=== PATIENT | female | born 1970 | race Two or more races ===

== ENCOUNTER 2023-12-26 13:12 | Outpatient (OUT) | payer BC, SELFPAY ==
--- NOTE | 2023-12-26 13:15 | MM_ITS ---
Patient Name: MK VICTOR MR#: [id number] : 1970 Exam Date: 12/26/2023 Ordering Doctor: DR MADAI BAHENA M.D. RADIOLOGY REPORT PROCEDURE: MM TOMOSYNTHESIS SCREENING BI COMPARISON: MG MAMM SCREEN 3D SIRENA CAD, 12/23/2022. MG MAMM SCREEN 3D SIRENA CAD, 11/26/2021. MG MAMM SCREEN SIRENA W CAD, 11/13/2019. MG MAMM SIRENA SCRN W CAD DIG, 01/01/2014. INDICATIONS: Screening Calculator Name NCI Breast Cancer Risk Assessment Tool 5 Year Breast Cancer Risk 1.50% Lifetime Breast Cancer Risk 8.90% Personal Breast Cancer No Personal Ovarian Cancer No Treatments None Family Cancers None LOCATION: [facility] BREAST COMPOSITION: Heterogeneously dense,which may obscure small masses. FINDINGS: DIAGNOSTIC CATEGORY 2--BENIGN FINDING: RIGHT BREAST: No significant suspicious finding. Scattered benign-appearing lymph nodes are present. No significant change has occurred. LEFT BREAST: No significant suspicious finding. Scattered benign-appearing lymph nodes are present. No significant change has occurred. RECOMMENDATIONS: ROUTINE MAMMOGRAM AND CLINICAL EVALUATION IN 12 MONTHS. PLEASE NOTE: A NORMAL MAMMOGRAM DOES NOT EXCLUDE THE POSSIBILITY OF BREAST CANCER. A CLINICALLY SUSPICIOUS PALPABLE LUMP SHOULD BE BIOPSIED. Dictated by: Lorenzo Tomas M.D. on 12/28/2023 at 15:54 Approved by: Lorenzo Tomas M.D. on 12/28/2023 at 15:56
== END 2023-12-26 13:13 | disposition home or self-care (01) ==
LOC: MAMMO 13:12
PROVIDERS: PCP Obstetrics & Gynecology; Visit Provider Obstetrics & Gynecology
DX: Z12.31 Encounter for screening mammogram for malignant neoplasm of breast (principal)
CPT/HCPCS: 77063; 77067

== ENCOUNTER 2025-01-01 14:47 | Outpatient (OUT) | payer BC, SELFPAY ==
--- NOTE | 2025-01-01 14:50 | MM_ITS ---
Patient Name: MK VICTOR MR#: [id number] : 1970 Exam Date: 01/01/2025 Ordering Doctor: DR MADAI BAHENA M.D. RADIOLOGY REPORT PROCEDURE: MM TOMOSYNTHESIS SCREENING BI COMPARISON: MM TOMOSYNTHESIS SCREENING BI, 12/26/2023. MG MAMM SCREEN 3D SIRENA CAD, 12/23/2022. MG MAMM SCREEN 3D SIRENA CAD, 11/26/2021. MG MAMM SIRENA SCRN W CAD DIG, 01/01/2014. INDICATIONS: Screening Calculator Name NCI Breast Cancer Risk Assessment Tool 5 Year Breast Cancer Risk 1.60% Lifetime Breast Cancer Risk 8.70% Personal Breast Cancer No Personal Ovarian Cancer No Treatments None Family Cancers None LOCATION: [facility] BREAST COMPOSITION: The breasts are heterogeneously dense,which may obscure small masses. FINDINGS: RIGHT BREAST: No significant suspicious finding. LEFT BREAST: No significant suspicious finding. BENIGN-APPEARING CALCIFICATIONS ARE PRESENT. SIMILAR FOCAL ASYMMETRIES ARE NOTED LATERALLY. DIAGNOSTIC CATEGORY 2--BENIGN FINDING. NO CHANGE FROM COMPARISON. RECOMMENDATIONS: ROUTINE MAMMOGRAM AND CLINICAL EVALUATION IN 12 MONTHS. PLEASE NOTE: A NORMAL MAMMOGRAM DOES NOT EXCLUDE THE POSSIBILITY OF BREAST CANCER. A CLINICALLY SUSPICIOUS PALPABLE LUMP SHOULD BE BIOPSIED. Dictated by: Nicholas Jackson MD on 01/01/2025 at 15:54 Approved by: Nicholas Jackson MD on 01/01/2025 at 15:56
--- OUTSIDE RECORDS SUMMARY | 2025-01-01 15:06 | XMS_ITS | CCD ---
Author Organization [facility] Inform ion [facility] Care Team Providers Care Water/Wastewater Engineer Name Role Phone Community, Outreach Attending Provider [phone] NO FAMILY, PHYSICIAN Primary Care Provider Unava ilable REQUEST, DR MAXWELL LISTED Admitting Unavaila ble REQUEST, DR MAXWELL LISTED Attending Unavaila ble REQUEST, DR MAXWELL LISTED Consulting Unavaila ble SHRUTI, DR AJ Admitting Unavailable SHRUTI, DR AJ Attending Unavailable SHRUTI, DR AJ Consulting Unavailable WEST, DR MAYRA Blanchard Consulting Unavailable Lizette Callejas MD Primary Care Provider [phone] LIZETTE CALLEJAS Attending Unavailable LIZETTE CALLEJAS Attending Unavailable LIZETTE CALLEJAS Attending Unavailable LIZETTE CALLEJAS Attending Unavailable Medications Current Medications Medication Drug Class(es) Dates Sig (Normalized) Sig (Original) amLODIPine 5 mg oral tablet (7 sources) Dihydropyridine Calcium Channel Melba Start: 02-07-2024 End: 11-06-2025 take 1 tablet by mouth once daily amLODIPine (Norvasc) 5 MG tablet Indications: Elevated BP without diagnosis of hypertension Take 1 tablet (5 mg) by mouth Daily 100 tablet 3 10/02/2024 11/06/2025 Active predniSONE 10 mg oral tablet (2 sources) Start: 10-02-2024 End: 10-18-2024 take 4 tablets by mouth once daily, then take 3 tablets by mouth once daily, then take 2 tablets by mouth once daily, then take 1 tablet by mouth once daily predniSONE (Deltasone) 10 MG tablet Indications: Crepitus of right TMJ on opening of jaw Take 4 tablets (40 mg) by mouth Daily for 4 days, THEN 3 tablets (30 mg) Daily for 4 days, THEN 2 tablets (20 mg) Daily for 4 days, THEN 1 tablet (10 mg) Daily for 4 days. 40 tablet 10/02/2024 10/18/2024 Active Problems Active Problems Problem Classification Problem Date Documented Date Episodic/Chronic Anxiety disorders (5 sources) Anxiety; Translations: [Anxiety disorder, unspecified] Onset: 10-03-2023 10-03-2023 Chronic Disorders of lipid metabolism (10 sources) Hypertriglyceridemia; Translations: [Pure hyperglyceridemia] Onset: 10-03-2023 10-03-2023 Chronic Disorders of teeth and jaw (4 sources) Crepitus of right temporomandibular joint on opening; Translations: [Other specified disorders of temporomandibular joint] Onset: 10-02-2024 10-02-2024 Episodic Other circulatory disease (9 sources) Elevated blood-pressure reading without diagnosis of hypertension; Translations: [Elevated blood-pressure reading, without diagnosis of hypertension] Onset: 10-04-2023 08-13-2024 Episodic Other ear and sense organ disorders (5 sources) Otitis externa; Translations: [Unspecified otitis externa, unspecified ear] Onset: 10-03-2023 10-03-2023 Chronic Other nervous system disorders (5 sources) Carpal tunnel syndrome of left wrist; Translations: [Carpal tunnel syndrome, left upper limb] Onset: 10-03-2023 10-03-2023 Chronic Other screening for suspected conditions (not mental disorders or infectious disease) (6 sources) Encounter for screening mammogram for malignant neoplasm of breast; Translations: [Patient encounter status] Onset: 12-23-2022 Episodic Past or Other Problems Problem Classification Problem Date Documented Da te Episodic/Chronic Cancer of cervix (5 sources) Atypical squamous cells of undetermined significance on cervical Papanicolaou smear; Translations: [Atypical squamous cells of undetermined significance on cytologic smear of cervix (ASC-US)] Onset: 10-03-2023 10-03-2023 Episodic Results Test Name Value Interpretation Reference Range Facility MG MAMM SCREEN 3D SIRENA CADon 12-23-2022 MG MAMM SCREEN 3D SIRENA CAD Patient: MIRIAM BROWN Exam Date: 12/23/2022 : 1970 Gender:F Ordering : DR MADAI BAHENA M.D. Admission #: [id number] Family : Order #: [id number] CLICK HERE TO VIEW EXAM RADIOLOGY REPORT PROCEDURE: MAMMOGRAM SCREENING 3D BILATERAL CAD COMPARISON: MG MAMM SCREEN 3D SIRENA CAD, 11/26/2021. INDICATIONS: Screening mammography Calculator Name NCI Breast Cancer Risk Assessment Tool 5 Year Breast Cancer Risk 1.50% Lifetime Breast Cancer Risk 9.20% Personal Breast Cancer No Personal Ovarian Cancer No Treatments None Family Cancers None LOCATION: [facility] BREAST COMPOSITION: Heterogeneously dense,which may obscure small masses. FINDINGS: DIAGNOSTIC CATEGORY 2--BENIGN FINDING. NO CHANGE FROM COMPARISON. Scattered benign-appearing nodules are present. Scattered benign-appearing calcifications are present. Scattered benign-appearing lymph nodes are present. RIGHT BREAST: No significant suspicious finding. LEFT BREAST: No significant suspicious finding. RECOMMENDATIONS: ROUTINE MAMMOGRAM AND CLINICAL EVALUATION IN 12 MONTHS. PLEASE NOTE: A NORMAL MAMMOGRAM DOES NOT EXCLUDE THE POSSIBILITY OF BREAST CANCER. A CLINICALLY SUSPICIOUS PALPABLE LUMP SHOULD BE BIOPSIED. Dictated by: Mayra Sanabria MD on 12/23/2022 at 15:45 Approved by: Mayra Sanabria MD on 12/23/2022 at 15:47 Normal [facility] Blood hemoglobin measurement (mass/volume)Ordered By: [facility] on 05-22-2022 Hemoglobin (Bld) [Mass/Vol] 13.8 g/dL 11.8-15.4 [facility] Body fluid albumin measureme nt (mass/volume)Ordered By: [facility] on 05-22-2022 Albumin (Body fld) [Mass/Vol] 4.1 g/dL 3.2-5.5 [facility] CBC Without Differentialon 0 05-22-2022 Erythrocyte distribution width (RBC) [Ratio] 12.9 % Normal 11.9-15.3 [facility] Comment on above: Performed By: #### O UTREACH LIPID, OUTREACH CMP, OUTREACH GLYCO, OUTREACH VITD, OUTREACH TSH, CBCNOOUTREACH #### [facility] [address] Hematocrit (Bld) [Volume fraction] 41.3 % Normal 34.0-46.4 [facility] Comment on above: Performed By: #### O UTREACH LIPID, OUTREACH CMP, OUTREACH GLYCO, OUTREACH VITD, OUTREACH TSH, CBCNOOUTREACH #### [facility] [address] [place] [id number] [place] Hemoglobin (Bld) [Mass/Vol] 13.8 g/dL Normal 11.8-15.4 [facility] Comment on above: Performed By: #### O UTREACH LIPID, OUTREACH CMP, OUTREACH GLYCO, OUTREACH VITD, OUTREACH TSH, CBCNOOUTREACH #### [facility] [address] [place] [address] [place] MCH (RBC) [Entitic mass] 30.2 pg Normal 24.7-34.3 [facility] Comment on above: Performed By: #### O UTREACH LIPID, OUTREACH CMP, OUTREACH GLYCO, OUTREACH VITD, OUTREACH TSH, CBCNOOUTREACH #### [facility] [address] MCV (RBC) [Entitic vol] 90.6 fL Normal 80-100 [facility] Comment on above: Performed By: #### O UTREACH LIPID, OUTREACH CMP, OUTREACH GLYCO, OUTREACH VITD, OUTREACH TSH, CBCNOOUTREACH #### [facility] [address] Mean Corpuscular HGB Conc 33.3 g/dL Normal 32.0-35.0 [facility] Comment on above: Performed By: #### O UTREACH LIPID, OUTREACH CMP, OUTREACH GLYCO, OUTREACH VITD, OUTREACH TSH, CBCNOOUTREACH #### [facility] [address] [place] [address] [place] Platelet mean volume (Bld) [Entitic vol] 9.4 fL Normal 6.3-10.7 [facility] Comment on above: Result Comment: PERF ORMED BY: [place] [address] PATHOLOGIST HAZ TECH VIC ARENAS M.D. Performed By: #### O UTREACH LIPID, OUTREACH CMP, OUTREACH GLYCO, OUTREACH VITD, OUTREACH TSH, CBCNOOUTREACH #### [place] [address] [place] Platelets (Bld) [#/Vol] 272 10*3/uL Normal 150-450 [facility] Comment on above: Performed By: #### O UTREACH LIPID, OUTREACH CMP, OUTREACH GLYCO, OUTREACH VITD, OUTREACH TSH, CBCNOOUTREACH #### [facility] [address] [place] [address] RBC (Bld) [#/Vol] 4.56 10*6/uL Normal 3.60-5.00 [facility] Comment on above: Performed By: #### O UTREACH LIPID, OUTREACH CMP, OUTREACH GLYCO, OUTREACH VITD, OUTREACH TSH, CBCNOOUTREACH #### [facility] [address] [place] [address] WBC (Bld) [#/Vol] 5.8 10*3/uL Normal 3.8-11.6 [facility] Comment on above: Performed By: #### O UTREACH LIPID, OUTREACH CMP, OUTREACH GLYCO, OUTREACH VITD, OUTREACH TSH, CBCNOOUTREACH #### [facility] [address] [place] [address] CMP Outreachon 05-22-2022 Albumin [Mass/Vol] 4.1 g/dL Normal 3.2-5.5 [facility] Comment on above: Performed By: #### O UTREACH LIPID, OUTREACH CMP, OUTREACH GLYCO, OUTREACH VITD, OUTREACH TSH, CBCNOOUTREACH #### [facility] [address] [place] [address] ALP [Catalytic activity/Vol] 72 U/L Normal 32-92 [facility] Comment on above: Performed By: #### O UTREACH LIPID, OUTREACH CMP, OUTREACH GLYCO, OUTREACH VITD, OUTREACH TSH, CBCNOOUTREACH #### [facility] [address] [place], [place] [id number] [facility] ALT [Catalytic activity/Vol] 23 U/L Normal 10-60 [facility] Comment on above: Performed By: #### O UTREACH LIPID, OUTREACH CMP, OUTREACH GLYCO, OUTREACH VITD, OUTREACH TSH, CBCNOOUTREACH #### [facility] [address] [place], [place] [id number] [facility] AST [Catalytic activity/Vol] 22 U/L Normal 10-42 [facility] Comment on above: Performed By: #### O UTREACH LIPID, OUTREACH CMP, OUTREACH GLYCO, OUTREACH VITD, OUTREACH TSH, CBCNOOUTREACH #### [facility] [address] [place] [address] [place] Bilirubin [Mass/Vol] 0.7 mg/dL Normal 0.3-1.2 [facility] Comment on above: Performed By: #### O UTREACH LIPID, OUTREACH CMP, OUTREACH GLYCO, OUTREACH VITD, OUTREACH TSH, CBCNOOUTREACH #### [facility] [address] [place] [address] [place] Calcium [Mass/Vol] 9.5 mg/dL Normal 8.2-10.2 [facility] Comment on above: Performed By: #### O UTREACH LIPID, OUTREACH CMP, OUTREACH GLYCO, OUTREACH VITD, OUTREACH TSH, CBCNOOUTREACH #### [facility] [address] [place] [address] Chloride [Moles/Vol] 102 mmol/L Normal 95-114 [facility] Comment on above: Performed By: #### O UTREACH LIPID, OUTREACH CMP, OUTREACH GLYCO, OUTREACH VITD, OUTREACH TSH, CBCNOOUTREACH #### [facility] [address] [place] [address] [place] CO2 [Moles/Vol] 27.4 mmol/L Normal 22.0-30.0 [facility] Comment on above: Performed By: #### O UTREACH LIPID, OUTREACH CMP, OUTREACH GLYCO, OUTREACH VITD, OUTREACH TSH, CBCNOOUTREACH #### [facility] [address] [place] [address] [place] Creatinine [Mass/Vol] 0.72 mg/dL Normal 0.44-1.03 [facility] Comment on above: Performed By: #### O UTREACH LIPID, OUTREACH CMP, OUTREACH GLYCO, OUTREACH VITD, OUTREACH TSH, CBCNOOUTREACH #### [facility] [address] [place] [address] [place] Estimated GFR ( Sara > 60 Normal [facility] Comment on above: Result Comment: GFR estimated reference range: According to KDOQI guidelines, <60 ml/min/1.73m2 is sufficient to diagnose a patient with chronic kidney disease. Performed By: #### O UTREACH LIPID, OUTREACH CMP, OUTREACH GLYCO, OUTREACH VITD, OUTREACH TSH, CBCNOOUTREACH #### [address] Estimated GFR (Non- Am > 60 Normal [facility] Comment on above: Performed By: #### O UTREACH LIPID, OUTREACH CMP, OUTREACH GLYCO, OUTREACH VITD, OUTREACH TSH, CBCNOOUTREACH #### [address] Glucose [Mass/Vol] 91 mg/dL Normal 70-100 [facility] Comment on above: Result Comment: [facility] Glucose Reference Range is dependent on time and content of last meal. Glucose of more than 200 mg/dL in a nonstressed, ambulatory subject supports the diagnosis of Diabetes Mellitus. ADA recommended reference range Performed By: #### O UTREACH LIPID, OUTREACH CMP, OUTREACH GLYCO, OUTREACH VITD, OUTREACH TSH, CBCNOOUTREACH #### [address] Potassium [Moles/Vol] 4.1 mmol/L Normal 3.5-5.1 [facility] Comment on above: Performed By: #### O UTREACH LIPID, OUTREACH CMP, OUTREACH GLYCO, OUTREACH VITD, OUTREACH TSH, CBCNOOUTREACH #### [facility] [address] [place] [address] Protein [Mass/Vol] 7.2 g/dL Normal 6.1-7.9 [facility] Comment on above: Performed By: #### O UTREACH LIPID, OUTREACH CMP, OUTREACH GLYCO, OUTREACH VITD, OUTREACH TSH, CBCNOOUTREACH #### [facility] [address] [place] [address] [place] Sodium [Moles/Vol] 137 mmol/L Normal 136-146 [facility] Comment on above: Performed By: #### O UTREACH LIPID, OUTREACH CMP, OUTREACH GLYCO, OUTREACH VITD, OUTREACH TSH, CBCNOOUTREACH #### [place] [address] [place] Urea nitrogen [Mass/Vol] 7 mg/dL Low 9-23 [facility] Comment on above: Performed By: #### O UTRSKYLER LIPID, OUTREACH CMP, OUTREACH GLYCO, OUTREACH VITD, OUTREACH TSH, CBCNOOUTREACH #### [facility] [address] [place] [id number] [facility] Cholesterol [Mass/volume] in Serum or PlasmaOrdered By: OUTREACH COMMUNITY on 05-22-2022 Cholesterol [Mass/Vol] 277 mg/dL 140-200 [facility] Comment on above: Chol less than 200 m g/dl low risk Chol 201-239 mg/dl borderline risk Chol 240 mg/dl and greater high risk Cholesterol in LDL Calc [Mas s/Vol]Ordered By: [facility] on 05-22-2022 Cholesterol in LDL [Mass/Vol] 168 mg/dL 0-100 [facility] Comment on above: LDL ATP III CLASSIFI CATION LDL less than 100 mg/dL Optimal LDL 100-129 mg/dL Near or above optimal LDL 130-159 mg/dL Borderline high LDL 160-189 mg/dL High LDL greater than 189 mg/dL Very high Cholesterol in VLDL Calc [Ma ss/Vol]Ordered By: [facility] on 05-22-2022 Cholesterol in VLDL [Mass/Vol] 46 mg/dL [facility] Creatinine and Glomerular fi ltration rate.predicted panel (S/P/Bld)Ordered By: [facility] on 05-22-2022 Creatinine [Mass/Vol] 0.72 mg/dL 0.44-1.03 [facility] Erythrocyte distribution wid th Auto (RBC) [Ratio]Ordered By: [facility] on 05-22-2022 Erythrocyte distribution width (RBC) [Ratio] 12.9 % 11.9-15.3 [facility] Estimated glomerular filtrat ion rate (GFR) non- AmericanOrdered By: [facility] on 05-22-2022 GFR/1.73 sq M.predicted among non-blacks MDRD (S/P/Bld) [Vol rate/Area] > 60 mL/Min [facility] Glucose mean value [Mass/vol ume] in Blood Estimated from glycated hemoglobinOrdered By: OUTREACH [facility] on 05-22-2022 Average glucose Estimated from glycated hemoglobin (Bld) [Mass/Vol] 128 mg/dL [facility] Hematocrit Auto (Bld) [Volum e fraction]Ordered By: [facility] on 05-22-2022 Hematocrit (Bld) [Volume fraction] 41.3 % 34.0-46.4 [facility] Laboratory - Hematology and Cell countsOrdered By: [facility] on 05-22-2022 HbA1c (Bld) [Mass fraction] 6.1 % 4.3-5.6 [facility] Comment on above: Increased risk for d iabetes: 5.7 - 6.4 diabetes: >6.4 glycemic control for adults with diabetes: <7.0 Lipid Profile [facility] Cholesterol [Mass/Vol] 277 mg/dL High 140-200 [facility] Comment on above: Result Comment: Chol less than 200 mg/dl low risk Chol 201-239 mg/dl borderline risk Chol 240 mg/dl and greater high risk Performed By: #### O UTREACH LIPID, OUTREACH CMP, OUTREACH GLYCO, OUTREACH VITD, OUTREACH TSH, CBCNOOUTREACH #### [facility] [address] [place] [id number] [place] Cholesterol in HDL [Mass/Vol] 62 mg/dL Normal 35-85 [facility] Comment on above: Result Comment: HDL CHOL ATP-III CLASSIFICATION Cardiovascular Risk HDL > or equal to 60 mg/dL LOW HDL < 40 mg/dL HIGH Performed By: #### O UTREACH LIPID, OUTREACH CMP, OUTREACH GLYCO, OUTREACH VITD, OUTREACH TSH, CBCNOOUTREACH #### [facility] [address] [place] [id number] [facility] Cholesterol.total/Jordyn sterol in HDL [Mass ratio] 4.5 {ratio} Normal <5.0 [facility] Comment on above: Performed By: #### O UTREACH LIPID, OUTREACH CMP, OUTREACH GLYCO, OUTREACH VITD, OUTREACH TSH, CBCNOOUTREACH #### [facility] [address] [place] [id number] [place] LDL Cholesterol,Calculated 168 mg/dL High 0-100 [facility] Comment on above: Result Comment: LDL ATP III CLASSIFICATION LDL less than 100 mg/dL Optimal LDL 100-129 mg/dL Near or above optimal LDL 130-159 mg/dL Borderline high LDL 160-189 mg/dL High LDL greater than 189 mg/dL Very high Performed By: #### O UTREACH LIPID, OUTREACH CMP, OUTREACH GLYCO, OUTREACH VITD, OUTREACH TSH, CBCNOOUTREACH #### [facility] [address] Triglyceride w/Reflex 234 mg/dL High 35-149 [facility] Comment on above: Result Comment: TRIG ATP III CLASSIFICATION TRIG less than 150 mg/dL Normal TRIG 150-199 mg/dL Borderline high TRIG 200-500 mg/dL High TRIG greater than 500 mg/dL Very high Standard traceable to the Center for Disease Conrtrol and Prevention (CDC) test method. Performed By: #### O UTREACH LIPID, OUTREACH CMP, OUTREACH GLYCO, OUTREACH VITD, OUTREACH TSH, CBCNOOUTREACH #### [facility] [address] VLDL CHOLESTEROL 46 mg/dL Normal [facility] Comment on above: Performed By: #### O UTREACH LIPID, OUTREACH CMP, OUTREACH GLYCO, OUTREACH VITD, OUTREACH TSH, CBCNOOUTREACH #### [facility] [address] MCH Auto (RBC) [Entitic mass ]Ordered By: OUTREACH COMMUNITY on 05-22-2022 MCH (RBC) [Entitic mass] 30.2 pg 24.7-34.3 [facility] MCHC Auto (RBC) [Mass/Vol]Or dered By: OUTREACH COMMUNITY on 05-22-2022 MCHC (RBC) [Mass/Vol] 33.3 g/dL 32.0-35.0 [facility] MCV Auto (RBC) [Entitic vol] Ordered By: OUTREACH COMMUNITY on 05-22-2022 MCV (RBC) [Entitic vol] 90.6 fL 80-100 [facility] No Panel InformationOrdered By: OUTREACH COMMUNITY on 05-22-2022 25-Hydroxy Vitamin D Total 31.4 ng/mL 30-100 [facility] Comment on above: VITAMIN D STATUS 25( [place])VITAMIN D RANGE (ng/mL) Deficient <20 Insufficient 20 to <30 Sufficient 30 to 100 Reference: Jose Enrique MF,Ramy HOUSTON, Jef WALKER, et al. Evaluation,treatment, and prevention of vitamin D deficiency; an Endocrine Society clinical practice guideline. JCEM. 2010; 96(7):1911-30. Estimated GFR () > 60 mL/Min [facility] Comment on above: GFR estimated refere nce range: According to KDOQI guidelines, <60 ml/min/1.73m2 is sufficient to diagnose a patient with chronic kidney disease. Pharmacy Creatinine Clearance (Chem N/A [facility] Triglycerides Reflex 234 mg/dL 35-149 [facility] Comment on above: TRIG ATP III CLASSIF ICATION TRIG less than 150 mg/dL Normal TRIG 150-199 mg/dL Borderline high TRIG 200-500 mg/dL High TRIG greater than 500 mg/dL Very high Standard traceable to the Center for Disease Conrtrol and Prevention (CDC) test method. Outreach Glycoon 05-22-2022 Glucose [Mass/Vol] 128 mg/dL Normal [facility] Comment on above: Result Comment: PERF ORMED BY: [facility] [address] [place] [address] PATHOLOGIST HAZ TECH VIC ARENAS M.D. Performed By: #### O UTREACH LIPID, OUTREACH CMP, OUTREACH GLYCO, OUTREACH VITD, OUTREACH TSH, CBCNOOUTREACH #### [facility] [address] HbA1c (Bld) [Mass fraction] 6.1 % High 4.3-5.6 [facility] Comment on above: Result Comment: Incr eased risk for diabetes: 5.7 - 6.4 diabetes: >6.4 glycemic control for adults with diabetes: <7.0 Performed By: #### O UTREACH LIPID, OUTREACH CMP, OUTREACH GLYCO, OUTREACH VITD, OUTREACH TSH, CBCNOOUTREACH #### [facility] [address] Outreach VitD 25on 2 Outreach VitD 25 31.4 ng/mL Normal 30-100 [facility] Comment on above: Result Comment: JAMIL MIN D STATUS 25([place])VITAMIN D RANGE (ng/mL) Deficient <20 Insufficient 20 to <30 Sufficient 30 to 100 Reference: Jose Enrique MF,Ramy NC, Jef WALKER, et al. Evaluation,treatment, and prevention of vitamin D deficiency; an Endocrine Society clinical practice guideline. JCEM. 2010; 96(7):1911-30. PERFORMED BY: [facility] [address] [place] [address] PATHOLOGIST HAZ TECH VIC ARENAS M.D. Performed By: #### [facility], OUTREACH CMP, OUTREACH GLYCO, OUTREACH VITD, OUTREACH TSH, CBCNOOUTREACH #### [facility] [address] Platelet mean volume Auto (B ld) [Entitic vol]Ordered By: [facility] on 05-22-2022 Platelet mean volume (Bld) [Entitic vol] 9.4 fL 6.3-10.7 [facility] Platelets Auto (Bld) [#/Vol] Ordered By: [facility] on 05-22-2022 Platelets (Bld) [#/Vol] 272 10*3/uL 150-450 [facility] Protein [Mass/volume] in Ser um or PlasmaOrdered By: [facility] on 05-22-2022 Protein [Mass/Vol] 7.2 g/dL 6.1-7.9 [facility] RBC Auto (Bld) [#/Vol]Ordere d By: [facility] on 05-22-2022 RBC (Bld) [#/Vol] 4.56 10*6/uL 3.60-5.00 [facility] Serum or plasma alanine santiago otransferase measurement without P-5'-P (enzymatic activiOrdered By: [facility] on 05-22-2022 ALT No additional P-5'-P [Catalytic activity/Vol] 23 U/L 10-60 [facility] Serum or plasma alkaline eva sphatase measurement (enzymatic activity/volume)Ordered By: [facility] on 05-22-2022 ALP [Catalytic activity/Vol] 72 U/L 32-92 [facility] Serum or plasma aspartate am inotransferase measurement (enzymatic activity/volume)Ordered By: [facility] on 05-22-2022 AST [Catalytic activity/Vol] 22 U/L 10-42 [facility] Serum or plasma calcium haleigh urement (mass/volume)Ordered By: [facility] on 05-22-2022 Calcium [Mass/Vol] 9.5 mg/dL 8.2-10.2 [facility] Serum or plasma chloride migdalia surement (moles/volume)Ordered By: [facility] on 05-22-2022 Chloride [Moles/Vol] 102 mmol/L 95-114 [facility] Serum or plasma glucose haleigh urement (mass/volume)Ordered By: [facility] on 05-22-2022 Glucose [Mass/Vol] 91 mg/dL 70-100 [facility] Comment on above: ADA recommended refe rence range Random Glucose Reference Range is dependent on time and content of last meal. Glucose of more than 200 mg/dL in a nonstressed, ambulatory subject supports the diagnosis of Diabetes Mellitus. Serum or plasma high density lipoprotein (HDL) cholesterol measurementOrdered By: [facility] on 05-22-2022 Cholesterol in HDL [Mass/Vol] 62 mg/dL 35-85 [facility] Comment on above: HDL CHOL ATP-III CLA SSIFICATION Cardiovascular Risk HDL > or equal to 60 mg/dL LOW HDL < 40 mg/dL HIGH Serum or plasma potassium me asurement (moles/volume)Ordered By: [facility] on 05-22-2022 Potassium [Moles/Vol] 4.1 mmol/L 3.5-5.1 [facility] Serum or plasma sodium measu rement (moles/volume)Ordered By: [facility] on 05-22-2022 Sodium [Moles/Vol] 137 mmol/L 136-146 [facility] Serum or plasma total biliru bin measurement (mass/volume)Ordered By: [facility] on 05-22-2022 Bilirubin [Mass/Vol] 0.7 mg/dL 0.3-1.2 [facility] Serum or plasma total carbon dioxide measurement (moles/volume)Ordered By: [facility] on 05-22-2022 CO2 [Moles/Vol] 27.4 mmol/L 22.0-30.0 [facility] Serum or plasma total choles terol/high density lipoprotein (HDL) cholesterol mass ratOrdered By: [facility] on 05-22-2022 Cholesterol.total/Jordyn sterol in HDL [Mass ratio] 4.5 {ratio} [facility] Serum or plasma urea nitroge n measurement (mass/volume)Ordered By: [facility] on 05-22-2022 Urea nitrogen [Mass/Vol] 7 mg/dL 07-30 [facility] TSH DL <= 0.005 mIU/L QnOrde red By: [facility] on 05-22-2022 TSH Qn 1.23 m[IU]/L 0.45-5.33 [facility] Thyroid Stimulating Hormoneo n 05-22-2022 TSH Qn 1.23 m[IU]/L Normal 0.45-5.33 [facility] Comment on above: Performed By: #### [facility] LIP[facility], [facility] CMP, OUTREACH GLYCO, OUTREACH VITD, OUTREACH TSH, CBCNOOUTREACH #### [facility] [address] WBC Auto (Bld) [#/Vol]Ordere d By: [facility] on 05-22-2022 WBC (Bld) [#/Vol] 5.8 10*3/uL 3.8-11.6 [facility] CBC AUTO DIFFon 01-14-2022 BASO # 0.1 103/ul Normal 0.0-0.1 [facility] Comment on above: Performed By: #### D ATCBC #### [facility] [address] [address] [address] Kimberly Hubbard Basophils/100 WBC (Bld) 1.3 % Normal 0.2-2.0 [facility] Comment on above: Performed By: #### D ATCBC #### [facility] [address] [address] [address] Kimberly Hubbard EO # 0.2 103/ul Normal 0.0-0.7 [facility] Comment on above: Performed By: #### D ATCBC #### [facility] [address] [address] [address] Kimberly Hubbard Eosinophils/100 WBC (Bld) 3.8 % Normal 0.9-7.0 [facility] Comment on above: Performed By: #### D ATCBC #### [facility] [address] [address] [address] Kimberly Hubbard Erythrocyte distribution width (RBC) [Ratio] 12.3 % Normal 11.0-15.0 [facility] Comment on above: Performed By: #### D ATCBC #### [facility] [address] [place] [address] Dr. Kimberly Hubbard Hematocrit (Bld) [Volume fraction] 42.7 % Normal 36.0-48.0 [facility] Comment on above: Performed By: #### D ATCBC #### [facility] [address] [place] [address] Dr. Kimberly Hubbard Hemoglobin (Bld) [Mass/Vol] 14.1 g/dL Normal 12.0-16.0 [facility] Comment on above: Performed By: #### D ATCBC #### [facility] [address] [place] [address] Dr. Kimberly Hubbard IG # 0.01 10e3/ul Normal 0.00-0.03 [facility] Comment on above: Performed By: #### D ATCBC #### [facility] [address] [place] [address] Dr. Kimberly Hubbard IG % 0.2 % Normal 0.0-0.5 [facility] Comment on above: Performed By: #### D ATCBC #### [facility] [address] [place] [address] Dr. Kimberly Hubbard LYMPH # 2.2 103/ul Normal 1.2-3.8 [facility] Comment on above: Performed By: #### D ATCBC #### [facility] [address] [place] [address] Dr. Kimberly Hubbard Lymphocytes/100 WBC (Bld) 40.9 % Normal 20.5-60.0 [facility] Comment on above: Performed By: #### D ATCBC #### [facility] [address] [place] [address] Dr. Kimberly Hubbard MCH (RBC) [Entitic mass] 29.8 pg Normal 26.7-34.0 [facility] Comment on above: Performed By: #### D ATCBC #### [facility] [address] [address] [address] Kimberly Hubbard MCHC (RBC) [Mass/Vol] 33.0 g/dL Normal 29.9-35.2 [facility] Comment on above: Performed By: #### D ATCBC #### [facility] [address] [place] [address] Dr. Kimberly Hubbard MCV (RBC) [Entitic vol] 90.3 fL Normal 81.0-99.0 [facility] Comment on above: Performed By: #### D ATCBC #### [facility] [address] [place] [address] Dr. Kimberly Hubbard MONO # 0.4 103/ul Normal 0.3-0.8 [facility] Comment on above: Performed By: #### D ATCBC #### [facility] [address] [place] [address] Dr. Kimberly Hubbard Monocytes/100 WBC (Bld) 7.0 % Normal 1.7-12.0 [facility] Comment on above: Performed By: #### D ATCBC #### [facility] [address] [place] [address] Dr. Kimberly Hubbard NEUT # 2.5 103/ul Normal 1.4-6.5 [facility] Comment on above: Performed By: #### D ATCBC #### [facility] [address] [place] [address] Dr. Kimberly Hubbard Neutrophils/100 WBC (Bld) 46.8 % Normal 43.0-75.0 [facility] Comment on above: Performed By: #### D ATCBC #### [facility] [address] [place] [address] Dr. Kimberly Hubbard Platelet mean volume (Bld) [Entitic vol] 9.9 fL Normal 9.5-13.5 [facility] Comment on above: Performed By: #### D ATCBC #### [facility] [address] [place] [address] Dr. Kimberly Hubbard PLT 334 103/ul Normal 150-450 [facility] Comment on above: Performed By: #### D ATCBC #### [facility] [address] [address] [address] Kimberly Hubbard RBC 4.73 106/ul Normal 4.20-5.40 [facility] Comment on above: Performed By: #### D ATCBC #### [facility] [address] [address] [address] Kimberly Hubbard WBC 5.3 103/ul Normal 4.0-11.0 [facility] Comment on above: Performed By: #### D ATCBC #### [facility] [address] [place] [address] Dr. Kimberly Hubbard OSMIN- BMP WITH LIPIDon 2021 Anion gap [Moles/Vol] 14.4 mmol/L Normal [facility] Comment on above: Performed By: #### D ATBMP #### [facility] [address] [place] [address] Dr. Kimberly Hubbard Calcium [Mass/Vol] 9.1 mg/dL Normal 8.4-10.2 [facility] Comment on above: Performed By: #### D ATBMP #### [facility] [address] [place] [address] Dr. Kimberly Hubbard Chloride [Moles/Vol] 102 mmol/L Normal 98-107 [facility] Comment on above: Performed By: #### D ATBMP #### [facility] [address] [place] [address] Dr. Kimberly Hubbard Cholesterol [Mass/Vol] 237 mg/dL Critically high <=200 [facility] Comment on above: Performed By: #### D ATBMP #### [facility] [address] [address] [address] Kimberly Hubbard Cholesterol in HDL [Mass/Vol] 73 mg/dL Normal [facility] Comment on above: Performed By: #### D ATBMP #### [facility] [address] [place] [address] Dr. Kimberly Hubbard Cholesterol in LDL [Mass/Vol] 136.6 mg/dL Normal [facility] Comment on above: Performed By: #### D ATBMP #### [facility] [address] [address] [address] Kimberly Hubbard CO2 [Moles/Vol] 28.5 mmol/L Normal 22.0-30.0 [facility] Comment on above: Performed By: #### D ATBMP #### [facility] [address] [address] [address] Kimberly Hubbard Creatinine [Mass/Vol] 0.81 mg/dL Normal 0.52-1.04 [facility] Comment on above: Performed By: #### D ATBMP #### [facility] [address] [address] [address] Kimberly Hubbard EGFR-AF CYMRAES >60 Normal >=60 [facility] Comment on above: Performed By: #### D ATBMP #### [facility] [address] [address] [address] Kimberly Hubbard EGFR-NON AF CYMRAES >60 Normal >=60 [facility] Comment on above: Performed By: #### D ATBMP #### [facility] [address] [address] [address] Kimberly Hubbard Glucose [Mass/Vol] 98 mg/dL Normal 74-106 [facility] Comment on above: Performed By: #### D ATBMP #### [facility] [address] [address] [address] Kimberly Hubbard HDL NORMAL > or = 60 mg/dl - LOW CARDIOVASCULAR RISK <40 mg/dl - HIGH CARDIOVASCULAR RISK Normal [facility] Comment on above: Performed By: #### D ATBMP #### [facility] [address] [address] [address] Kimberly Hubbard LDL CALC NORMAL SEE BELOW Normal [facility] Comment on above: Result Comment: <100 mg/dl OPTIMAL 100 - 129 mg/dl NEAR OR ABOVE OPTIMAL 130 - 159 mg/dl BORDERLINE HIGH 160 - 189 mg/dl HIGH >190 mg/dl VERY HIGH Performed By: #### D ATBMP #### [facility] [address] [address] [address] Kimberly Hubbard Potassium [Moles/Vol] 3.9 mmol/L Normal 3.4-5.0 [facility] Comment on above: Performed By: #### D ATBMP #### [facility] [address] [address] [address] Kimberly Hubbard Sodium [Moles/Vol] 141 mmol/L Normal 137-145 [facility] Comment on above: Performed By: #### D ATBMP #### [facility] [address] [address] [address] Kimberly Hubbard Triglyceride [Mass/Vol] 137 mg/dL Normal <=150 [facility] Comment on above: Performed By: #### D ATBMP #### [facility] [address] [place] [address] Dr. Kimberly Hubbard Urea nitrogen [Mass/Vol] 10.0 mg/dL Normal 7.0-17.0 [facility] Comment on above: Performed By: #### D ATBMP #### [facility] [address] [place] [address] Dr. Kimberly Hubbard Urea nitrogen/Creatinine [Mass ratio] 12.3 mg/mg Normal [facility] Comment on above: Performed By: #### D ATBMP #### [facility] [address] [place] [address] Dr. Kimberly Hubbard VLDL CALC 27.4 mg/dL Normal [facility] Comment on above: Performed By: #### D ATBMP #### [facility] [address] [place] [address] Dr. Kimberly Hubbard Coding Summary.on 01-24-2021 Coding Summary. CODING DATE: 01/24/[address] [facility] STATUS: Home (Routine DC) PAYOR: Medicaid EAPG DESCRIPTION 0397 LEVEL II MICROBIOLOGY TESTS 0392 PAP SMEARS ADMIT DX: REASON FOR VISIT DX: Z11.51 Encounter for screening for human papillomavirus (HPV) FINAL DX: PRINCIPAL: Z11.51 Encounter for screening for human papillomavirus (HPV) SECONDARY: Z01.419 Encounter for gynecological examination (general) (routine) without abnormal findings PYMT PROC EAPG STAT DESCRIPTION DOCTOR NAME DATE NOTE: The code number assigned matches the documented diagnosis and / or procedure in the patient's chart. However, the narrative phrase printed from the coding software may appear abbreviated, or result in slightly different terminology. Coded By: Enedina Croft Date Saved: 01/24/2021 06:38 am Normal [facility] PAP [id number] 01-21-2021 Cytology report Cyto stain Doc (Cvx/Vag) Note [facility] Comment on above: Result Comment: TEST S RESULT FLAG UNITS REF RANGE LAB Clinician Provided Cytology Information Source.............Endocervix LMP / Prev Treat...FKU=[id number] Other..............Post Menopausal No. of containers..01 ThinPrep Vial DIAGNOSIS: 01 NEGATIVE FOR INTRAEPITHELIAL LESION OR MALIGNANCY. CELLULAR CHANGES ASSOCIATED WITH INFLAMMATION ARE PRESENT. 01 Satisfactory for evaluation. Endocervical and/or squamous metaplastic cells (endocervical component) are present. Areas of partially obscuring inflammatory exudate are present. 01 Melinda Sanabria, Software Configuration Analyst (ASCP) 01 Note 01 The Pap smear is a screening test designed to aid in the detection of premalignant and malignant conditions of the uterine cervix. It is not a diagnostic procedure and should not be used as the sole means of detecting cervical cancer. Both false-positive and false-negative reports do occur. Test Methodology: Note 01 This liquid based ThinPrep(R) pap test was screened with the use of an image guided system. FLAG LEGEND: L-Low Normal,H-High Normal,LL-Alert Low,HH-Alert High <-Panic Low,>-Panic High,A-Abnormal,AA-Critical Abnormal Performed at: [address] [id number] Nafisa Lopez MD, Performed By: #### 1 [id number] #### [facility] [address] [id number] HPV 16+18+31+33+35+39+45+51 +52+56+58+59+66+68 DNA Probe+sig amp Ql (Cvx) Negative Negative [facility] Comment on above: Result Comment: This nucleic acid amplification test detects fourteen high-risk HPV types (16,18,31,33,35,39,45,51,52,56,58,59,66,68) without differentiation. Performed at: [facility] [id number] MD John Skelton Performed at: =[facility] [id number] MD John Skelton Performed By: #### 1 [id number] #### [facility] [address] [place] [address] PAP [id number] 01-14-2021 Collection Technique BRUSH-SPATULA Normal [facility] Comment on above: Performed By: #### 1 [id number] #### [facility] [address] [place] [address] Gynecological Body Site ENDOCERVIX Normal [facility] Comment on above: Performed By: #### 1 [id number] #### [facility] [address] [place] [address] LMP or Menopause Date [id number] [facility] Comment on above: Performed By: #### 1 [id number] #### [facility] [address] [place] [address] Other Patient Information MENOPAUSAL Normal [facility] Comment on above: Performed By: #### 1 [id number] #### [facility] [address] [place] [address] Previous Cytology Negative Normal [facility] Comment on above: Performed By: #### 1 [id number] #### [facility] [address] [place] [address] Previous Treatment NONE Normal [facility] Comment on above: Performed By: #### 1 [id number] #### [facility] [address] [place] [address] Physician Orderon 01-14-2021 Physician Order [id number]:127 Normal [facility] Vital Signs Date Time Vital Sign Value Performing Clinician Faci lity 10-02-2024 15:02-0500 Body height 144.8 cm Lizette Callejas MD Work Phone: [facility] 10-02-2024 15:02-0500 Body mass index (BMI) [Ratio] 21.64 kg/m2 Lizette Callejas MD Work Phone: [facility] 10-02-2024 15:02-0500 Body weight 45.36 kg Lizette Callejas MD Work Phone: [facility] 10-02-2024 15:02-0500 Diastolic blood pressure 82 mm[Hg] Lizette Callejas MD Work Phone: [facility] 10-02-2024 15:02-0500 Heart rate 84 /min Lizette Callejas MD Work Phone: [facility] 10-02-2024 15:02-0500 SaO2% (BldA) [Mass fraction] 98 % Lizette Callejas MD Work Phone: [facility] 10-02-2024 15:02-0500 Systolic blood pressure 112 mm[Hg] Lizette Callejas MD Work Phone: [facility] 08-13-2024 13:26-0400 Body height 144.8 cm Lizette Callejas MD Work Phone: [facility] 08-13-2024 13:26-0400 Body mass index (BMI) [Ratio] 21.64 kg/m2 Lizette Callejas MD Work Phone: [facility] 08-13-2024 13:26-0400 Body weight 45.36 kg Lizette Callejas MD Work Phone: [facility] 08-13-2024 13:26-0400 Diastolic blood pressure 82 mm[Hg] Lizette Callejas MD Work Phone: [facility] 08-13-2024 13:26-0400 Heart rate 75 /min Lizette Callejas MD Work Phone: [facility] 08-13-2024 13:26-0400 SaO2% (BldA) [Mass fraction] 99 % Lizette Callejas MD Work Phone: [facility] 08-13-2024 13:26-0400 Systolic blood pressure 130 mm[Hg] Lizette Callejas MD Work Phone: [facility] Encounters Encounter Date Encounter Type Care Provider Facility Start: 10-02-2024 End: 10-02-2024 Office outpatient visit 10 minutes Lizette Callejas MD Work Phone: [facility] Comment on above: Crepitus of right TM J on opening of jaw (Primary Dx); Elevated BP without diagnosis of hypertension Start: 10-02-2024 End: 10-02-2024 ambulatory RUGEN M BRITTA Not Available Start: 10-02-2024 End: 10-02-2024 Bamboo flowsheet Lizette Callejas MD Work Phone: [facility] Start: 10-02-2024 End: 10-02-2024 Bamboo flowsheet Lizette Callejas MD Work Phone: [facility] Start: 08-13-2024 End: 08-13-2024 ambulatory RUGEN M BRITTA Not Available Start: 08-13-2024 End: 08-13-2024 Office outpatient visit 15 minutes Lizette Callejas MD Work Phone: [facility] Comment on above: Elevated BP without diagnosis of hypertension (Primary Dx); Screening for colon cancer Start: 02-07-2024 End: 02-07-2024 ambulatory LIZETTE CALLEJAS Not Available Start: 11-08-2023 End: 11-08-2023 ambulatory LIZETTE CALLEJAS Not Available Start: 12-23-2022 End: 12-24-[address] MADAI BAHENA Facility: Start: 05-22-2022 End: 05-22-2022 [facility] Work Phone: [facility] Start: 01-11-2022 End: 01-12-2022 ambulatory NONE LISTED REQUEST Facility: Procedures Date Procedure Procedure Detail Performing Clinician Start: 12-26-2023 Mammography Lizette Callejas MD Work Phone: Plan of Treatment Date Care Activity Detail Author Start: 01-14-2026 Screening for malign ant neoplasm of cervix [facility] Start: 08-07-2025 Influenza vaccination Influenza Vacc ine (#1) [facility] Comment on above: Postponed from 07/08 (Other Medical Reasons) Start: 02-11-2025 End: 02-11-2025 Patient encounter procedure 02/11/2025 1:30 PM EDT Office Visit [facility] [address] [facility] [address] [place] [address] Lizette Callejas MD [address] [facility] [address] [place] [address] [facility] Start: 12-26-2024 Screening for malign ant neoplasm of breast Mammogram [facility] Start: 08-04-2024 Screening for malign ant neoplasm of colon [facility] Start: 1991 Screening for malign ant neoplasm of cervix Pap Smear [facility] Start: 1970 Screening for malign ant neoplasm of colon [facility] Noninvasive colorect al cancer DNA and occult blood screening [Presence] in Stool Cologuard colon cancer screening Lab Routine Screening for colon cancer Ordered: 08/13/2024 [facility] Work Phone: Comment on above: Ordered: 08/13/2024 Immunizations Immunization Date Immunization Notes Care Provider Fa cility 11-26-2017 Influenza, injectabl e, Mikey Reynaga Canine Kidney, preservative free, quadrivalent Lizette Callejas MD Work Phone: [facility] 11-26-2017 influenza virus vacc ine, unspecified formulation Lizette Callejas MD Work Phone: [facility] Payers Date Payer Category Payer Unknown [id number] 1959 Self-pay [id number] 1959 Unknown [id number] Unknown [id number] Social History Date Type Detail Facility Tobacco smoking stat [facility] Unknown if ever smoked [facility] Work Phone: Start: 1970 Sex Assigned At Female F [facility] Start: 10-03-2023 [facility] Start: 10-03-2023 Tobacco use and exposure Smoke less tobacco non-user [facility] Start: 08-13-2024 End: 10-02-2024 Alcoholic beverage intake Lifetime non-drinker (finding) [facility] Start: 10-03-2023 End: 10-02-2024 History of Social function [facility] Start: 10-03-2023 End: 10-02-2024 Humiliation, Afraid, Rape, and Kick questionnaire [HARK] [facility] Within the last year , have you been afraid of your partner or ex-partner? No [facility] Are you now , , , , never or living with a partner? [facility] How often to you hav e a drink containing alcohol? Monthly or less [facility] How many standard dr inks containing alcohol do you have on a typical day? Patient does not drink [facility] How often do you hav e 6 or more drinks on 1 occasion? Never [facility] How hard is it for y ou to pay for the very basics like food, housing, medical care, and heating Not very hard [facility] Do you feel stress - tense, restless, nervous, or anxious, or unable to sleep at night because your mind is troubled all the time - these days [OSQ] To some extent [facility] (I/We) worried wheth er (my/our) food would run out before (I/we) got money to buy more. Never true [facility] Start: 1970 Sex assigned at Not on file [facility] History of Present illness Narrative 10-02-2024 Lizette Callejas MD - 10/02/2024 3:14 PM Dom Callejas MD - 10/02/2024 3:10 PM Dom Callejas MD - 10/02/2024 3:00 PM EST Note Date & Type Note Facility 10-02-2024 History of Presen t illness Narrative Associated Problem(s): Crepitus of right TMJ on opening of jaw I discussed with patient that while on prednisone, do not take any NSAIDs like Ibuprofen, Naprosyn, Alleve or motrin. Watch for any side effects like abdominal pain and nausea. Take the prednisone with food or milk. Prednisone may increase appetite. While on prednisone, watch for any sugar elevations. Consider Oral Surgeon Associated Problem(s): Elevated BP without diagnosis of hypertension Our specific goals, for your hypertension, is to keep your blood pressure less than 140/90, and the importance of weight control. We made recommendations on how to control your blood pressure, and minimize your risk of these copmplications. We also discussed your current barriers to a healthy living and importance of healthy diet and exercise. Prior to your visit today we have reviewed your chart and formed a plan to assist with providing you the best possible care. We reviewed the possible complications of hypertension including, stroke, heart failure and kidney impairment. In addition, we discussed your medications, the importance of taking them as prescribed. DASH diet handouts Images from the original note were not included. Subjective Patient ID: Miriam Brown is a 54 y.o. female who presents for Jaw Pain. Pt is here for right sided jaw pain/ locking , pt states it is a lot better Pt stated it makes noise when she moves her jaw, been going on for the past two weeks she will still have some pain Pt states when she eats hard things it will pop Current Outpatient Medications on File Prior to Visit Medication Sig Dispense Refill amLODIPine (Norvasc) 5 MG tablet Take 1 tablet (5 mg) by mouth Daily 100 tablet 3 No current facility-administered medications on file prior to visit. I have reviewed and reconciled the history and medication list with the patient today. No Known Allergies Social History Tobacco Use Smoking status: Never Smokeless tobacco: Never Substance Use Topics Alcohol use: Never Family History Problem Relation Name Age of Onset Stroke Father Past Medical History: Diagnosis Date Anxiety 10/03/2023 Carpal tunnel syndrome of left wrist 10/03/2023 Gallstone pancreatitis Hypertriglyceridemia (CMS/HCC) 10/03/2023 Pure hypercholesterolemia (CMS/HCC) 10/03/2023 Past Surgical History: Procedure Laterality Date CHOLECYSTECTOMY Visit Vitals Smoking Status Never Review of Systems Objective Physical Exam Constitutional: Appearance: Normal appearance. HENT: Head: Comments: crepitus Neurological: Mental Status: She is alert. Assessment/Plan Problem List Items Addressed This Visit Elevated BP without diagnosis of hypertension Our specific goals, for your hypertension, is to keep your blood pressure less than 140/90, and the importance of weight control. We made recommendations on how to control your blood pressure, and minimize your risk of these copmplications. We also discussed your current barriers to a healthy living and importance of healthy diet and exercise. Prior to your visit today we have reviewed your chart and formed a plan to assist with providing you the best possible care. We reviewed the possible complications of hypertension including, stroke, heart failure and kidney impairment. In addition, we discussed your medications, the importance of taking them as prescribed. DASH diet handouts Relevant Medications amLODIPine (Norvasc) 5 MG tablet Crepitus of right TMJ on opening of jaw - Primary I discussed with patient that while on prednisone, do not take any NSAIDs like Ibuprofen, Naprosyn, Alleve or motrin. Watch for any side effects like abdominal pain and nausea. Take the prednisone with food or milk. Prednisone may increase appetite. While on prednisone, watch for any sugar elevations. Consider Oral Surgeon Relevant Medications predniSONE (Deltasone) 10 MG tablet No follow-ups on file. documented in this encounter [facility] History of Present illness Narrative 08-13-2024 Lizette Callejas MD - 08/13/2024 1:35 PM EDTRman Callejas MD - 08/13/2024 1:15 PM EDT Note Date & Type Note Facility 08-13-2024 History of Presen t illness Narrative Associated Problem(s): Elevated BP without diagnosis of hypertension Our specific goals, for your hypertension, is to keep your blood pressure less than 140/90, and the importance of weight control. We made recommendations on how to control your blood pressure, and minimize your risk of these copmplications. We also discussed your current barriers to a healthy living and importance of healthy diet and exercise. Prior to your visit today we have reviewed your chart and formed a plan to assist with providing you the best possible care. We reviewed the possible complications of hypertension including, stroke, heart failure and kidney impairment. In addition, we discussed your medications, the importance of taking them as prescribed. DASH diet handouts Images from the original note were not included. Subjective Patient ID: Miriam Brown is a 54 y.o. female who presents for Hypertension. Hypertension This is a recurrent problem. The current episode started more than 1 month ago. The problem has been gradually improving since onset. The problem is controlled. Pertinent negatives include no anxiety or chest pain. Past treatments include ROSA inhibitors. The current treatment provides significant improvement. There are no compliance problems. There is no history of angina, kidney disease, CVA, heart failure, PVD or retinopathy. Current Outpatient Medications on File Prior to Visit Medication Sig Dispense Refill amLODIPine (Norvasc) 5 MG tablet Take 1 tablet (5 mg) by mouth Daily 100 tablet 3 No current facility-administered medications on file prior to visit. I have reviewed and reconciled the history and medication list with the patient today. No Known Allergies Social History Tobacco Use Smoking status: Never Smokeless tobacco: Never Substance Use Topics Alcohol use: Never Family History Problem Relation Name Age of Onset Stroke Father Past Medical History: Diagnosis Date Anxiety 10/03/2023 Carpal tunnel syndrome of left wrist 10/03/2023 Gallstone pancreatitis Hypertriglyceridemia (CMS/HCC) 10/03/2023 Pure hypercholesterolemia (CMS/HCC) 10/03/2023 Past Surgical History: Procedure Laterality Date CHOLECYSTECTOMY Visit Vitals BP 130/82 Pulse 75 Ht 4' 9 Wt 100 lb SpO2 99% BMI 21.64 kg/m Smoking Status Never BSA 1.35 m Review of Systems Constitutional: Negative for chills, fatigue, fever and unexpected weight change. Respiratory: Negative for cough. Occ cough Cardiovascular: Negative for chest pain. Gastrointestinal: Negative for abdominal pain, blood in stool, constipation, diarrhea, nausea and vomiting. Genitourinary: Negative for dysuria, enuresis, frequency and hematuria. Musculoskeletal: Negative for back pain. Neurological: Negative for dizziness, tremors, syncope, facial asymmetry and speech difficulty. Psychiatric/Behavioral: Negative for agitation, behavioral problems, confusion and dysphoric mood. The patient is not nervous/anxious. Objective Physical Exam Constitutional: General: She is not in acute distress. Appearance: Normal appearance. HENT: Head: Normocephalic. Cardiovascular: Rate and Rhythm: Normal rate and regular rhythm. Pulmonary: Effort: Pulmonary effort is normal. No respiratory distress. Breath sounds: Normal breath sounds. Neurological: General: No focal deficit present. Mental Status: She is alert and oriented to person, place, and time. Psychiatric: Mood and Affect: Mood normal. Assessment/Plan Problem List Items Addressed This Visit Elevated BP without diagnosis of hypertension - Primary Our specific goals, for your hypertension, is to keep your blood pressure less than 140/90, and the importance of weight control. We made recommendations on how to control your blood pressure, and minimize your risk of these copmplications. We also discussed your current barriers to a healthy living and importance of healthy diet and exercise. Prior to your visit today we have reviewed your chart and formed a plan to assist with providing you the best possible care. We reviewed the possible complications of hypertension including, stroke, heart failure and kidney impairment. In addition, we discussed your medications, the importance of taking them as prescribed. DASH diet handouts Other Visit Diagnoses Screening for colon cancer Relevant Orders Cologuard colon cancer screening Follow up in about 6 months (around 02/11/2025). documented in this encounter [facility] Evaluation note Note Date & Type Note Facility Evaluation note No assessment information vinnie [facility] Work Phone: Evaluation note Note Date & Type Note Facility Evaluation note Diagnosis Elevated BP without diagnosis of hypertension- Primary Screening for colon cancer Special screening for malignant neoplasms, colon documented in this encounter [facility] Evaluation note Note Date & Type Note Facility Evaluation note Diagnosis Elevated BP without diagnosis of hypertension- Primary Elevated BP without diagnosis of hypertension- Primary Elevated BP without diagnosis of hypertension Elevated BP without diagnosis of hypertension- Primary Screening for colon cancer Special screening for malignant neoplasms, colon Crepitus of right TMJ on opening of jaw- Primary Elevated BP without diagnosis of hypertension documented in this encounter [facility] Summary Purpose Family History No Family History Records FoundNo Family History Records FoundNo Family History Records FoundNo Family History Records Found Advance Directives No Advanced Directives Records FoundNo Advanced Directives Records FoundNo Advanced Directives Records FoundNo Advanced Directives Records Found Chief Complaint and Reason for Visit Chief Complaint complete, tsh, a1c v it d Additional Source Comments INFORMATION SOURCE (unrecogn ized section and content) DATE CREATED AUTHOR 01/25/2021 [facility] DATE CREATED AUTHOR AUTHOR'S ORGANIZ ATION 05/27/2022 [facility] DATE CREATED AUTHOR AUTHOR'S ORGANIZ ATION 12/29/2022 [facility] DATE CREATED AUTHOR AUTHOR'S ORGANIZ ATION 10/05/2024 [facility] EPIC Care Teams (unrecognized sec tion and content) Team Status: Inactive Member Role Status Dates Outreach Community Attending Provider Active PHYSICIAN NO FAMILY Primary Care Provider Active Team Status: Active Member Role Status Dates PHYSICIAN NO FAMILY Primary Care Provider Active Water/Wastewater Engineer Relationship Specialty Start Date End Date Lizette Callejas MD [address] [place] [address] PCP - General Family Medicine 03/15/23 Water/Wastewater Engineer Relationship Specialty Start Date End Date Lizette Callejas MD [address] [place] [address] PCP - General Family Medicine 03/15/23 Water/Wastewater Engineer Relationship Specialty Start Date End Date Lizette Callejas MD [address] [facility] [address] [place] [address] PCP - General Family Medicine 03/15/23 Goals (unrecognized section and content) Goals may be documented in a n alternate section Reason for Visit (unrecogniz ed section and content) Reason Comments Hypertension Reason Comments Jaw Pain FOR RECORDS PERTAINING TO PATIENTS WHO ARE OR HAVE BEEN ENROLLED IN A CHEMICAL DEPENDENCY/SUBSTANCEABUSE PROGRAM, SOME INFORMATION MAY BE OMITTED. This clinical summary was aggregated from multiple sources. Caution should be exercised in using it in the provision of clinical care. This summary normalizes information from multiple sources, and as a consequence, information in this document may materially change the coding, format and clinical context of patient data. In addition, data may be omitted in some cases. CLINICAL DECISIONS SHOULD BE BASED ON THE PRIMARY CLINICAL RECORDS. [facility]. provides no warranty or guarantee of the accuracy or completeness of information in this document.
== END 2025-01-01 14:48 | disposition home or self-care (01) ==
LOC: MAMMO 14:47
PROVIDERS: PCP Obstetrics & Gynecology; Visit Provider Obstetrics & Gynecology
DX: Z12.31 Encounter for screening mammogram for malignant neoplasm of breast (principal)
CPT/HCPCS: 77063; 77067